=== PATIENT | female | born 1965 | race Caucasian/White ===

== ENCOUNTER 2021-03-13 06:19 | Day surgery (SDC) | payer BC, OTHER ==
[2021-03-08 16:33] VITALS: BMI 24.2
[2021-03-13] MEDS ORDERED: BUPIVACAINE HCL/EPINEPHRINE/PF 30 ML VIAL IJ ONE (07:39)
[2021-03-13] MEDS ORDERED: LIDOCAINE 1%/EPI 1:100000 (20 ML MULTI DOSE VIAL) ONE (07:40)
[2021-03-13] MEDS ORDERED: MIDAZOLAM HCL 2 MG/2 ML SINGLE DOSE VIAL ONE ×2 (08:02)
[2021-03-13] MEDS ORDERED: ROCURONIUM BROMIDE 50 MG/5 ML SYRINGE ONE (08:02)
[2021-03-13] MEDS ORDERED: SUCCINYLCHOLINE CHLORIDE 200 MG/10 ML SYRINGE ONE (08:02)
[2021-03-13] MEDS ORDERED: PROPOFOL 20 ML ONE (08:02)
[2021-03-13] MEDS ORDERED: BUPIVACAINE HCL/PF 2.5 MG/ML - 30 ML VIAL IJ ONE (08:20)
[2021-03-13] MEDS ORDERED: DEXAMETHASONE SOD PHOSPHATE 4 MG/1 ML VIAL ONE (09:10)
[2021-03-13] MEDS ORDERED: ONDANSETRON 4 MG/2 ML VIAL ONE (09:10)
[2021-03-13] MEDS ORDERED: ceFAZolin SODIUM 1 GM VIAL ONE (09:15)
[2021-03-13] MEDS ORDERED: NEOSTIGMINE METHYLSULFATE 0.5 MG/1 ML - 10 ML MDV ONE (09:15)
[2021-03-13] MEDS ORDERED: LIDOCAINE HCL 2% JELLY (5 ML/TUBE) ONE (09:15)
[2021-03-13] MEDS ORDERED: LIDOCAINE HCL/PF 2% SDV 5ML VIAL ONE (09:15)
[2021-03-13] MEDS ORDERED: GLYCOPYRROLATE 0.2 MG/1 ML VIAL ONE (09:15)
[2021-03-13] MEDS ORDERED: BUPIVACAINE HCL/PF 0.25% (2.5MG/ML) 10 ML VIAL IJ ONE (09:24)
[2021-03-13] MEDS ORDERED: oxyCODONE HCL 5 MG TABLET PO PRN ×3 (09:42→09:46)
[2021-03-13] MEDS ORDERED: ONDANSETRON 4 MG/2 ML VIAL IVPB PRN (09:42)
[2021-03-13] MEDS ORDERED: LACTATED RINGERS SOLUTION 1,000 ML IV SCH ×2 (09:45→10:00)
[2021-03-13] MEDS ORDERED: ONDANSETRON 4 MG/2 ML VIAL IVPUSH PRN (09:46)
[2021-03-13] MEDS ORDERED: PROMETHAZINE HCL 25 MG/1 ML VIAL IVPUSH PRN (09:46)
[2021-03-13 10:14] VITALS: TEMP 97.3
[2021-03-13] MEDS ORDERED: oxyCODONE HCL 5 MG TABLET ONE (10:58)
[2021-03-13 11:49] VITALS: BP 126/82; PULSE 76
== END 2021-03-13 12:18 | disposition home or self-care (01) ==
LOC: FASU 06:19
PROVIDERS: ATTEND Plastic Surgery
PROC: 0HNV0ZZ Release Bilateral Breast, Open Approach (ICD-10-PCS; principal; 2021-03-13 08:30)
DX: T85.44XA Capsular contracture of breast implant, initial encounter (principal)
CPT/HCPCS: 88300-TC; 94760

== ENCOUNTER 2021-11-11 19:16 | Emergency (ER) | payer BC, OTHER ==
[2021-11-11] MEDS ORDERED: DIPHTH,PERTUSS(ACELL),TET 0.5 ML DISP.SYRIN IM ONE (19:19)
[2021-11-11] MEDS ORDERED: CEPHALEXIN MONOHYDRATE 500 MG CAPSULE (UD) PO ONE (19:19)
[2021-11-11 19:29] VITALS: BP 163/86; PULSE 116; TEMP 98.3; BMI 24.0
[2021-11-11] MEDS ORDERED: CLINDAMYCIN HCL 300 MG CAPSULE PO ONE (20:04)
[2021-11-11] MEDS ORDERED: CLINDAMYCIN HCL 150 MG CAPSULE (FP) ONE (20:12)
== END 2021-11-11 20:45 | disposition home or self-care (01) ==
LOC: FER 19:16
PROC: 0HQGXZZ Repair Left Hand Skin, External Approach (ICD-10-PCS; principal; 2021-11-11)
PROC: 3E0234Z Introduction of Serum, Toxoid and Vaccine into Muscle, Percutaneous Approach (ICD-10-PCS; 2021-11-11)
DX: S61.412A Laceration without foreign body of left hand, initial encounter (principal); W26.0XXA Contact with knife, initial encounter
CPT/HCPCS: 73130-TC-LT-FY; 90715; 99283-25